=== PATIENT | male | born 1975 | race Caucasian/White ===

== ENCOUNTER 2024-06-29 20:01 | Emergency (ER) | payer OTHER, SELFPAY ==
[2024-06-29 20:04] VITALS: BP 123/77; PULSE 84; RESP 20; TEMP 36.9; O2SAT 100
--- NOTE | 2024-06-29 23:21 | ED.SKABFB ---
HPI - Skin/Abscess/Foreign Bdy General Chief complaint: Skin/Abscess/Foreign Body Stated complaint: wound Time Seen by Provider: 06/29/24 23:05 History of Present Illness HPI narrative: Patient is a 48-year-old male who presents to the ER with a right forearm abscess. He reports he noticed it forming as a pimple 3 days ago. Patient reports site has become more red, warm, and swollen. He reports it is ?trying to drain but hasn't noticed any drainage. Patient denies chest pain, shortness the breath, other signs of illness or infection. Related Data Allergies Allergy/AdvReac Type Severity Reaction Status Date / Time No Known Allergies Allergy Verified 06/29/24 20:07 Review of Systems Review of Systems: All systems reviewed & are unremarkable except as noted in HPI and below Exam Narrative: GENERAL: Well appearing, well-nourished, non-toxic, in no acute distress. NECK: Supple. No adenopathy, no masses. RESPIRATORY: Airway patent, respirations nonlabored. Clear to auscultation bilaterally, no rales, rhonchi, wheezing. CARDIOVASCULAR: Regular rate and rhythm without murmurs, rubs, or gallops. Peripheral pulses 2+ and equal bilaterally. ABDOMINAL: Soft, nontender, nondistended, no hepatosplenomegaly. Normoactive BS. MUSCULOSKELETAL: Moves all extremities. Strength/ROM intact without gross deformities. SKIN: Warm, dry. Pt has a swollen, red, warm abscess on his R forearm that is intact and soft to the touch. NEURO: A&O X3. Speech clear. Cranial nerves II-XII grossly intact. Steady gait. No ataxic movements. PSYCHIATRIC: Appropriate mood and affect. Normal interaction. Course Vital Signs Vital signs: Vital Signs Temperature 36.9 C 06/29/24 20:04 Pulse Rate 84 06/29/24 20:04 Respiratory Rate 20 06/29/24 20:04 Blood Pressure 123/77 06/29/24 20:04 Pulse Oximetry 100 06/29/24 20:04 Oxygen Delivery Room Air 06/29/24 20:04 Temperature 36.9 C 06/29/24 20:04 Pulse Rate 84 06/29/24 20:04 Respiratory Rate 20 06/29/24 20:04 Blood Pressure 123/77 06/29/24 20:04 Pulse Oximetry 100 06/29/24 20:04 Oxygen Delivery Room Air 06/29/24 20:04 Procedures Abscess I/D upper extremity: Date of Incision: 06/30/24 Time of Incision: 00:15 Side (if applicable): left Sedation/analgesia: none Local Anesthetic: lidocaine 1% Amount of anesthesia used (mL): 2 Technique: incised with #11 blade and probed loculations Amount of fluid expressed (mL): 2 Irrigation: Yes Packing used?: plain I&D Results: Pus and Blood MDM - Skin/Abscess/Foreign Bdy MDM Narrative Medical decision making narrative: Patient is a 48-year-old male who presents to the ER with a L forearm abscess. He reports he noticed it forming as a pimple 3 days ago. Patient reports site has become more red, warm, and swollen. He reports it is ?trying to drain but hasn't noticed any actual drainage. Patient denies chest pain, shortness the breath, other signs of illness or infection. DEXTRINE MIXER numbed the area around the abscess with 1% lidocaine then used an 11 blade scalpel to create an incision into the abscess. A small amount of purulence drainage was excised from the area, along with a moderate amount of blood. Approximately 3 in worth packing was inserted into the open wound. Patient advised to keep the packing in overnight and remove it with saline tomorrow. He will be placed on oral antibiotics and advised to come back to the ER if signs and symptoms of infection present. Patient verbally agrees with plan of discharge. Differential Diagnosis Differential diagnosis: Likely abscess of skin or subcutaneous tissue and cellulitis Discharge Plan Discharge Clinical Impression: Abscess of skin or subcutaneous tissue Patient Disposition: Home, Self-Care Condition: Stable Instructions: Antibiotic Form, Abscess (ED) Additional Instructions:
[2024-06-29] MEDS: HYDROcodone/acetaminophen (*CRX) 5-325 MG TABLET 1 TAB PO (23:38)
[2024-06-29] MEDS: DOXYCYCLINE HYCLATE 100 MG TABLET PO (23:39)
[2024-06-30 00:45] VITALS: RESP 18
== END 2024-06-30 00:45 | disposition home or self-care (01) ==
PROVIDERS: Emergency Provider Registered Nurse
DX: L02.414 Cutaneous abscess of left upper limb (principal)
CPT/HCPCS: 10061; 99283; A9270